=== PATIENT | female | born 1940 ===

== ENCOUNTER 2017-09-02 08:41 | Outpatient (CLI) | payer OTHER | END 2017-09-02 08:44 | disposition home or self-care (01) | LOC: SONOGRAMA 08:41 | DX: E04.2 Nontoxic multinodular goiter (principal) ==

== ENCOUNTER 2020-10-26 07:47 | Outpatient (CLI) | payer OTHER | END 2020-10-26 07:54 | disposition home or self-care (01) | LOC: SONOGRAMA 07:47 | PROVIDERS: ATTEND Pathology Anatomic Pathology & Clinical Pathology | DX: E04.2 Nontoxic multinodular goiter (principal) ==